=== PATIENT | female | born 1955 | race Two or more races ===

== ENCOUNTER 2025-01-03 08:44 | Outpatient (AMB) | payer MEDICARE, MEDICAID, SELFPAY ==
[2025-01-03 08:55] VITALS: BMI 36.4
--- NOTE | 2025-01-03 08:55 | A.PHYSOV_ITS ---
Vital Signs 01/03/25 08:55 Height 4 ft 11 in Weight 180 lb BMI 36.4 Intake Visit Reasons: F/U after injection 12/05/2024 Intake Note: Patient is a 69 year old female in office for a follow up after injection on 12/05/24 (Right L3 Transforaminal Epidural Injection). Better for a week and now the pain is back. Patient also states both hips hurt. 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 The patient previously reported bilateral leg pain, with the right side being more affected than the left, and symptoms were exacerbated at night. Pain was noted when lying on the left side, and a prednisone taper initially provided relief, although symptoms returned as the dosage decreased. The patient's lumbar sacral spine MRI showed L4 through S1 fusion with moderate central canal stenosis above the fusion site. A right L3 transforaminal inj ection had previously offered relief, but the pain returned after a week. The patient experiences pain affecting the hips and walking, and has a history of post-laminectomy syndrome. The patient has spinal stenosis above the fusion, which contributes to the pain experienced when standing and walking. Sitting and bending forward provide some relief, but the patient still struggles with certain activities such as cleaning. The sacroiliac joint dysfunction, particularly on the right side, is suspected to contribute to the pain experienced during specific movements. Pain Description - Onset and Timing: Pain is worse at night and when lying on the left side. - Quality and Character: Pain is persistent and returns after initial relief from interventions. - Primary Location: Lower back with radiation to bilateral legs, right worse than left. - Exacerbating Factors: Standing, walking, and specific movements such as cleaning. - Relieving Factors: Sitting and bending forward provide some relief. Results - Imaging: Lumbar sacral spine MRI showed L4 through S1 fusion with moderate central canal stenosis above the fusion. [facility] Medical History (Updated 01/03/25 @ 13:39 by Toro Orellana DO) Sacroiliac inflammation Sacroiliac dysfunction Spinal stenosis, lumbar region with neurogenic claudication Lumbar radiculitis Post laminectomy syndrome Chronic pain syndrome Surgical History (Updated 12/29/24 @ 19:21 by Kay Coley MA) History of lumbar fusion Social History (Updated 01/03/25 @ 09:00 by Kay Coley MA) Household Members: Spouse Alcohol intake: current Alcohol intake frequency: does not drink Patient Tobacco Use Status: Never used Tobacco Current occupational status: employed Review of Systems Narrative Review of Systems - Musculoskeletal: Reports lower back pain with radiation to bilateral legs, right worse than left. - Neurological: Denies significant relief from previous injections. Denies change in bowel bladder habits, denies fever or chills Physical Exam Exam Exam: Physical Exam Patient appears to be in no acute distress, appropriately conversant oriented. Lumbar extension and side bending was restricted. Dural tension signs were negative. Tenderness with palpation over bilateral SI sulci, worse on the right side. The SI provocative maneuvers were positive on the right side including fabere, [place] sign and SI compression test. Neurological examination was nonfocal. Patient demonstrated no upper motor neuron signs. Vital Signs: BMI result Body Mass Index 36.4 Assessment & Plan Assessment & Plan (1) Post laminectomy syndrome: Code(s): M96.1 - Postlaminectomy syndrome, not elsewhere classified Category: Medical (2) Lumbar radiculitis: Code(s): M54.16 - Radiculopathy, lumbar region Category: Medical (3) Spinal stenosis, lumbar region with neurogenic claudication: Code(s): M48.062 - Spinal stenosis, lumbar region with neurogenic claudication Category: Medical (4) Sacroiliac dysfunction: Code(s): M53.3 - Sacrococcygeal disorders, not elsewhere classified Category: Medical (5) Sacroiliac inflammation: Code(s): M46.1 - Sacroiliitis, not elsewhere classified Category: Medical (6) Chronic pain syndrome: Code(s): G89.4 - Chronic pain syndrome Category: Medical Plan Pain Management - Affect: Pain impacts the patient's ability to walk and perform daily activi ties. - Analgesia: Currently on pregabalin 75 mg, with plans to increase to 100 mg twice daily, and meloxicam. - Adverse Effects: Previous medications caused hunger and blurry vision, leading to discontinuation. - Activities of Daily Living: Pain affects walking and cleaning activities. - Aberrant Drug Related Behaviors: None reported. Plan Patient was informed and verbally consented to the use of an ambient scribe for clinic note documentation during this visit. 1. Lumbar Radiculitis The plan for lumbar radiculitis includes increasing the dosage of pregabalin to 100 mg twice daily to manage pain symptoms. The patient will continue with meloxicam as previously prescribed. 2. Spinal Stenosis For spinal stenosis, the patient has been advised to continue with conservative management, including medication adjustments and monitoring of symptoms. 3. Post-Laminectomy Syndrome Post-laminectomy syndrome management involves monitoring symptoms and adjusting medications as needed. 4. Sacroiliac Joint Dysfunction Sacroiliac joint dysfunction will be managed by monitoring symptoms and considering further interventions if necessary. Discussion Notes During the visit, we discussed the patient's ongoing issues with lumbar radiculitis, spinal stenosis, post-laminectomy syndrome, and sacroiliac joint dysfunction. We reviewed the effectiveness of previous interventions, including the limited relief from injections and the need to adjust medication dosages. The patient was informed about the plan to increase pregabalin dosage and continue with meloxicam, with a follow-up scheduled after the holidays to assess progress. She has not been able to sleep. Recommended increasing pregabalin to 100 mg twice a day initially, increase to 200 mg at bedtime in a few days if tolerated. Hopefully this will establish better quality of sleep. Follow up in a couple of months. Patient Instructions - Take pregabalin 100 mg twice daily as prescribed. - Continue taking meloxicam as previously directed. - Monitor symptoms and report any significant changes or side effects. - Follow up after the holidays for reassessment. Medications: New pregabalin Take 1 capsule in the morning and 2 at bedtime 100 mg PO BID 90 caps 2RF Chronic pain syndrome G89.4 - Chronic pain syndrome Coding Level of Care Code Est Pt Level 4 (26916) Complex visit Add On G2211 Diagnoses Post laminectomy syndrome M96.1 Lumbar radiculitis M54.16 Spinal stenosis, lumbar region with neurogenic claudication M48.062 Sacroiliac dysfunction M53.3 Sacroiliac inflammation M46.1 Chronic pain syndrome G89.4
--- OUTSIDE RECORDS SUMMARY | 2025-01-03 09:07 | XMS_ITS | Clinical Summary ---
Author Organization [address] [place] [address] [place] [phone] Phone Care Team Providers Care Customer Care Professional Name Role Phone Carly Marie Primary Care Provider [phone] Medical History Medical History Date Comments Fibromyalgia DX:Fibromyalgia Family History Medical History Relation Name Comments No Known Problems Brother No Known Problems Daughter No Known Problems Father No Known Problems Mother No Known Problems Other No Known Problems Sister No Known Problems Son Autoimmune disease Neg Hx Breast cancer Neg Hx Colon cancer Neg Hx Coronary artery disease Neg Hx Diabetes Neg Hx Heart attack Neg Hx Heart failure Neg Hx Hyperlipidemia Neg Hx Hypertension Neg Hx Mental illness Neg Hx Prostate cancer Neg Hx Sleep apnea Neg Hx Thyroid disease Neg Hx Relation Name Status Comments Brother Daughter Father Mother Other Sister Son Social History Tobacco Use Types Packs/Day Years Used Date Smoking Tobacco: Never Smokeless Tobacco: Never Alcohol Use Standard Drinks/Week Comments No 0 (1 standard drink = 0.6 oz pur e alcohol) Comments Unknown Sex and Gender Information Value Date Recorded Sex Assigned at Not on file Legal Sex Female 10:52 PM EST Gender Identity Not on file Sexual Orientation Not on file Obstetrics History Last Filed Vital Signs Vital Sign Reading Time Taken Comments Blood Pressure - - Pulse - - Temperature - - Respiratory Rate - - Oxygen Saturation - - Inhaled Oxygen Concentration - - Weight 80.7 kg (178 lb) 05/06/2024 2:49 PM EDT Height - - Body Mass Index - - Plan of Treatment Health Maintenance Due Date Last Done Comments Breast Cancer Screening 1955 Colorectal Cancer Screening: Colonoscopy 1955 RSV Immunization Adult Patients (1 - Risk 50-74 years 1-dose series) 11/27/2005 Falls Risk Assessment 01/18/2022 Medicare Annual Wellness Visit 01/18/2022 Social Influencers of Health Screening 01/18/2022 Depression Screening 02/10/2024 COVID-19 Vaccine ( season) 2024 12/12/2022, 11/25/2021, 01/12/2021, Additional history exists Influenza Vaccine (#1) 2024 , 11/18/2022, 11/25/2021, Additional history exists Cholesterol Screening (Lipid Panel) 03/25/2029 03/25/2024, 03/25/2024, 10/27/2023, Additional history exists DTaP,Tdap,and Td Vaccines (3 - Td or Tdap) 06/26/2031 06/25/2021, 05/18/2008 Osteoporosis Screening (Bone Density Screening) 10/30/2031 10/29/2021 Hepatitis C Screening Completed 07/23/2017, 018 Zoster Vaccines Completed 11/25/2021, 10/30/2020 Pneumococcal Vaccine: 50+ Years Completed 12/12/2022, 06/25/2021 HIB Vaccines Aged Out No longer eligi ble based on patient's age to complete this topic HPV Vaccines Aged Out No longer eligi ble based on patient's age to complete this topic Hepatitis A Vaccines Aged Out No long er eligible based on patient's age to complete this topic Hepatitis B Vaccines Aged Out No long er eligible based on patient's age to complete this topic IPV Vaccines Aged Out No longer eligi ble based on patient's age to complete this topic MMR Vaccines Aged Out No longer eligi ble based on patient's age to complete this topic Meningococcal ACWY Vaccine Aged Out N o longer eligible based on patient's age to complete this topic Meningococcal B Vaccine Aged Out No l onger eligible based on patient's age to complete this topic RSV Immunization Patients Under 20 months Aged Out No longer eligible based on patient's age to complete this topic Varicella Vaccines Aged Out No longer eligible based on patient's age to complete this topic Insurance [facility] MEDICARE ADVANTAGE on file Care Teams Customer Care Professional Relationship Specialty Start Date End Date Carly Marie PA [address] [place] [phone] PCP - General Physician Teacher Vocal 01/23/24
--- OUTSIDE RECORDS SUMMARY | 2025-01-03 09:07 | XMS_ITS | Clinical Summary ---
Author Organization [employer] Address [address] [facility] [address] [place] [address] Care Team Providers Care Oil Well Services Superintendent Name Role Phone Unavailable Primary Care Provider Unavailabl e Social History Tobacco Use Types Packs/Day Years Used Date Smoking Tobacco: Never Assessed Comments Unknown Sex and Gender Information Value Date Recorded Sex Assigned at Female 12/09/2021 10:25 AM EDT Legal Sex Female 10:25 AM EDT Gender Identity Female 12/09/2021 10:25 AM EDT Sexual Orientation Choose not to disclose 2021 10:25 AM EDT Last Filed Vital Signs Vital Sign Reading Time Taken Comments Blood Pressure 139/80 01/21/2019 12:12 AM EST Pulse 66 01/21/2019 12:12 AM EST Temperature - - Respiratory Rate - - Oxygen Saturation - - Inhaled Oxygen Concentration - - Weight - - Height - - Body Mass Index - - Plan of Treatment Health Maintenance Due Date Last Done Comments CT Colonography 1955 Colonoscopy 1955 Colorectal Cancer Screening 1955 Depression Screening 1955 FIT DNA/Cologuard 1955 FIT 1955 FOBT 1955 Sigmoidoscopy 1955 Alcohol/Substance Use Screening 1967 Tobacco Screening 1967 DTaP/Tdap/Td Vaccines (1 - Tdap) 11/27/1974 Mammogram 1995 Pneumococcal Vaccine: 50+ Ye ars (1 of 1 - PCV) 11/27/2005 Zoster Vaccines (1 of 2) 11/27/2005 COVID-19 Vaccine ( - 2024-2 6 season) 2024 Influenza Vaccine (#1) 2024 RSV Patients and Pa tients Aged 60 years or older (1 - 1-dose 75+ series) 11/27/2030 HIB Vaccines Aged Out No longer eligi [...] patient's age to complete this topic Meningococcal Vaccine Aged Out No rosita shayy eligible based on patient's age to complete this topic RSV under 20 months Aged Out No longe r eligible based on patient's age to complete this topic Rotavirus Vaccines Aged Out No longer eligible based on patient's age to complete this topic
--- OUTSIDE RECORDS SUMMARY | 2025-01-03 09:07 | XMS_ITS | Encounter Summary ---
Author Organization [employer] Address [address] [facility] [address] [place] [address] Care Team Providers Care Inside Sales Coordinator Name Role Phone Unavailable Primary Care Provider Unavailabl e Encounter Details Date Type Department Care Team (Latest Contact Info) Description 03/14/2020 Abstract [facility] CONVERSIONS Dental, Provider, DDS Social History Tobacco Use Types Packs/Day Years Used Date Smoking Tobacco: Never Assessed Comments Unknown Sex and Gender Information Value Date Recorded Sex Assigned at Female 12/09/2021 10:25 AM EDT Legal Sex Female 10:25 AM EDT Gender Identity Female 12/09/2021 10:25 AM EDT Sexual Orientation Choose not to disclose 2021 10:25 AM EDT documented as of this encounter Plan of Treatment Not on file documented as of this encounter Visit Diagnoses Not on filedocumented in this encounter
--- OUTSIDE RECORDS SUMMARY | 2025-01-03 09:07 | XMS_ITS | Encounter Summary ---
Author Organization [employer] Address [address] [facility] [address] [place] [address] Care Team Providers Care Prints And Drawings Curator Name Role Phone Unavailable Primary Care Provider Unavailabl e Encounter Details Date Type Department Care Team (Latest Contact Info) Description 07/16/2018 Abstract [facility] CONVERSIONS Dental, Provider, DDS Social History Tobacco [...]
== END 2025-01-03 09:35 | disposition home or self-care (01) ==
LOC: HO.HPHYS 08:45
PROVIDERS: PCP Physician Assistant; Visit Provider Physical Medicine & Rehabilitation
DX: M96.1 Postlaminectomy syndrome, not elsewhere classified (principal); M54.16 Radiculopathy, lumbar region; M48.062 Spinal stenosis, lumbar region with neurogenic claudication; M53.3 Sacrococcygeal disorders, not elsewhere classified; M46.1 Sacroiliitis, not elsewhere classified; G89.4 Chronic pain syndrome
CPT/HCPCS: 99214; G2211

== ENCOUNTER → 2025-01-03 08:44 | Outpatient (BNVA) | payer MEDICARE, MEDICAID, SELFPAY | PROVIDERS: PCP Physician Assistant; Visit Provider Physical Medicine & Rehabilitation | DX: M96.1 Postlaminectomy syndrome, not elsewhere classified (principal); M54.16 Radiculopathy, lumbar region; M48.062 Spinal stenosis, lumbar region with neurogenic claudication; M53.3 Sacrococcygeal disorders, not elsewhere classified; M46.1 Sacroiliitis, not elsewhere classified; G89.4 Chronic pain syndrome; Z79.899 Other long term (current) drug therapy; Z98.1 Arthrodesis status | CPT/HCPCS: 99212 ==